=== PATIENT | female | born 1995 | race Caucasian/White ===

== ENCOUNTER → 2018-08-06 12:08 | Outpatient (CLI) | payer OTHER, SELFPAY ==
--- NOTE | 2018-08-06 12:10 | US_ITS ---
STUDY: THYROID ULTRASOUND REASON FOR EXAM: Female, 22 years old. Thyromegaly on physical exam. TECHNIQUE: Ultrasound evaluation of the thyroid was performed with real-time and static lundberg-scale imaging. COMPARISON: None. FINDINGS: RIGHT LOBE: The right lobe of the thyroid gland measures 5.0 x 1.8 x 2.1 cm. There is a homogeneous echotexture. There are no demonstrated solid, cystic or complex lesions. LEFT LOBE: The left lobe of the thyroid gland measures 4.9 x 1.9 x 1.6 cm. There is a homogeneous echotexture. There are no demonstrated solid, cystic or complex lesions. ISTHMUS: The isthmus measures 4 mm. The regional lymph nodes are normal. US/Thyroid IMPRESSION: Normal ultrasound examination of the thyroid. Electronically Signed: Constantine Solis MD at 19:03 EDT , Service support ,
== END ==
PROVIDERS: Family Provider Family Medicine; PCP Family Medicine; Referring Provider Family Medicine; Visit Provider Family Medicine
DX: E01.0 Iodine-deficiency related diffuse (endemic) goiter (principal)
CPT/HCPCS: 76536

== ENCOUNTER 2021-06-23 09:50 | Emergency (ER) | payer OTHER, SELFPAY ==
[2021-06-23 09:51] VITALS: BP 155/93; PULSE 89; RESP 15; TEMP 36.2; O2SAT 98; BMI 41.1
--- NOTE | 2021-06-23 09:57 | RAD_ITS ---
STUDY: X-RAY - RIGHT HAND REASON FOR EXAM: Female, 25 years old. Pain at the base of the fifth digit following a fall. TECHNIQUE: 3 view(s) of the hand. COMPARISON: None. FINDINGS: Normal radiocarpal articulation. Normal distal radioulnar joint. Normal visualized carpal bones. Normal carpal articulations Normal carpometacarpal articulation of the thumb. Normal second through fifth carpometacarpal joints. Normal metacarpi. Normal metacarpophalangeal joint of the thumb. Normal interphalangeal joint of the thumb. Normal proximal and distal phalanges of the thumb. Normal metacarpophalangeal joints of the second through fifth fingers. Normal proximal and distal interphalangeal joints of the second through fifth fingers. Nondisplaced fracture at the base of the proximal phalanx of the fifth finger. Soft tissue swelling. RAD/Hand Min 3 Views IMPRESSION: Nondisplaced fracture at the base of the proximal phalanx of the fifth finger with overlying soft tissue swelling. Electronically Signed: Frandy You MD at 10:31 EST ,
--- NOTE | 2021-06-23 10:00 | EX.ED.UPPERE ---
HPI History of Present Illness Chief Complaint: Upper Extremity Injury Informant: patient Narrative Narrative: 25-year-old female states that last night she sustained a fall. States she came down on her right hand. She remove the ring from her ring finger and noticed some swelling and started to ice it. This morning she notes ecchymosis and more swelling. She notes its very painful to move the fingers. She is right-handed. She notes that she scraped her knee and has a small contusion on her left hand. PFSH PFS Medical History (Updated 06/23/21 @ 10:[address] Channing Newby DO) Migraine Pseudotumor cerebri syndrome Home Medications oxycodone-acetaminophen 1 tab PO Q6H PRN PRN 3 Days #12 tablet 06/23/21 [Rx Last Taken Unknown] Allergy/AdvReac Type Severity Reaction Status Date / Time No Known Allergies Allergy Verified 02/01/17 17:03 Social History (Updated 06/23/21 @ 10:[address] Channing Newby DO) current gender identity: female Smoking Status: Never smoker ROS ROS ED Constitutional Constitutional ED: Denies chills, fever(s) or weight loss Eyes Eyes: Denies change in vision or diplopia ENT ENT ED: Denies ear pain, rhinorrhea or sore throat Cardiovascular Cardiovascular: Denies chest pain, orthopnea, palpitations or racing heartbeat Respiratory/Chest Respiratory/Chest: Denies cough, dyspnea or orthopnea Gastrointestinal Gastrointestinal: Denies abdominal pain, diarrhea, nausea or vomiting Genitourinary Genitourinary ED: Denies dysuria, hematuria or urinary frequency Musculoskeletal Musculoskeletal: Reports other Details: See history of present illness ; Denies arthralgias or myalgias Integumentary Reports Abrasions; Denies abscess or rash Neurologic Neurologic: Denies headache(s) or weakness Psychiatric Psychiatric: Denies anxiety, depression, suicidal ideation or suicidal thoughts Endocrine Endocrinology: Denies polydipsia, polyphagia or polyuria Allergic/Immunologic Allergic/Immunologic ED: Denies mouth swelling, tongue swelling or urticaria EXAM Physical Exam Const Vital Signs: 06/23/21 09:51 Temperature 97.2 F L Temperature Source Temporal Pulse Rate 89 Respiratory Rate 15 Blood Pressure 155/93 H Blood Pressure Mean 113 Pulse Ox 98 Oxygen Delivery Method Room Air Positive well nourished, well developed and obese General Appearance ED: well developed Nutritional Appearance: obese HEENT Reports normocephalic, head/scalp atraumatic and moist mucous membranes normocephalic and atraumatic Eyes PERRL and EOMs intact bilaterally Neck full ROM, no lymphadenopathy, supple and no JVD Resp normal respiratory effort and clear to auscultation bilaterally Cardio regular rate, regular rhythm and no murmurs GI normal to inspection, nondistended, normoactive bowel sounds and non-tender Palpation: soft Back/Spine no CVA tenderness and normal ROM Extremity Extremity Narrative: Patient has painful extension and flexion of the hand. She keeps her hand in a slightly flexed position. There is ecchymosis and swelling both over the palmar surface and the dorsal surface of the hand particularly over the fifth metacarpal. Small contusion to the palm of the left hand. General Extremety ED: Negative for edema General Extremity: Negative for edema Neuro oriented x3 and CN's II-XII intact bilaterally Sensorium / Orientation: alert Motor Exam: strength 5/5 throughout Psych mental status grossly normal Mood & Affect: Negative for depressed or tearful Skin no rashes or lesions noted and no wounds MDM MDM MDM Narrative Medical decision making narrative: My interpretation of plain films of the right hand is an acute fracture of the base of the proximal phalanx of the little finger. Patient was placed in a ulnar gutter splint that was well-padded. Neurovascular tact pre and post application. She will follow-up with orthopedics Discharge Plan Triage Chief Complaint: Upper Extremity Injury ED Provider: Channing Newby Dx/Rx/DC Orders Clinical Impression: Closed fracture of proximal phalanx of little finger Instructions: ED Fracture, Finger, Closed Prescriptions: New oxycodone-acetaminophen [oxycodone-acetaminophen] 1 TABLET tablet 1 tab PO Q6H PRN PRN (Reason: Pain) 3 Days Qty: 12 RF: 0 Primary Care Provider: Domo Lewis Referrals: Domo Lewis MD [Primary Care Provider] - Erasto Yeager DO [STAFF PHYSICIAN] - As soon as possible Disposition Disposition: Home, Self Care
== END 2021-06-23 10:51 | disposition home or self-care (01) ==
LOC: ED 10:42
PROVIDERS: Emergency Provider Emergency Medicine; PCP Nurse Practitioner Family; Visit Provider Emergency Medicine
DX: S62.646A Nondisplaced fracture of proximal phalanx of right little finger, initial encounter for closed fracture (principal); Z68.41 Body mass index [BMI] 40.0-44.9, adult; W19.XXXA Unspecified fall, initial encounter; E66.9 Obesity, unspecified
CPT/HCPCS: 29125; 73130; 99282

== ENCOUNTER 2024-01-22 16:47 | Emergency (ER) | payer OTHER, SELFPAY ==
[2024-01-22 16:47] VITALS: BP 121/103; PULSE 89; RESP 18; TEMP 36.4; O2SAT 97; BMI 43.9
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
[2024-01-22 18:47] VITALS: BP 126/50; PULSE 81; RESP 19; O2SAT 97
[2024-01-22 19:41] VITALS: BP 126/74; PULSE 69; RESP 16; TEMP 36.3; O2SAT 99
== END 2024-01-22 19:42 | disposition home or self-care (01) ==
PROVIDERS: Emergency Provider Emergency Medicine; PCP Nurse Practitioner Family; Visit Provider Emergency Medicine
DX: S06.0X0A Concussion without loss of consciousness, initial encounter (principal); W50.0XXA Accidental hit or strike by another person, initial encounter
CPT/HCPCS: 70450; 99282